=== PATIENT | male | born 1995 | race Caucasian/White ===

== ENCOUNTER 2017-06-26 18:26 | Emergency (ER) | payer BC ==
[~2017-06-26] VITALS: Ht 165.1 cm; Wt 79.5 kg
[~2017-06-26 18:26] MED LIST: NOCURR
[2017-06-26] MEDS ORDERED: HYDROCODONE/ACETAMINOPHEN 5-325 MG TABLET PO ONE (19:15)
[2017-06-26 20:30] VITALS: BP 136/81
== END 2017-06-26 21:07 | disposition home or self-care (01) ==
LOC: EMS 18:28
DX: S62.112A Displaced fracture of triquetrum [cuneiform] bone, left wrist, initial encounter for closed fracture (principal); V00.131A Fall from skateboard, initial encounter; Y93.51 Activity, roller skating (inline) and skateboarding; Y92.9 Unspecified place or not applicable; Y99.9 Unspecified external cause status
CPT/HCPCS: 99284